=== PATIENT | female | born 1985 | race Native Hawaiian/Other Pacific Islander ===

== ENCOUNTER 2018-01-17 16:50 | Emergency (ER) | payer SELFPAY ==
[2018-01-17 17:17] VITALS: BP 123/76
--- NOTE | 2018-01-17 19:23 | Emergency Department Report ---
ED Anxiety HPI - General Chief Complaint: Anxiety Stated Complaint: RIGHT SIDE PAIN/HEAD PAIN Time Seen by Provider: 01/17/18 19:21 Source: patient Mode of arrival: Wheelchair - History of Present Illness Initial Comments: 32-year-old female reports that she had a panic attack at school after school officials informed her that the lost her child. Patient reported right flank pain. As well as a headache during her panic attack. Patient reports that she is currently on Cipro for urinary tract infection and has been on it for one week but still having symptoms. Patient does have a past medical history of anxiety, panic attacks, depression. Surgical history cholecystectomy. She is currently taking no medications has no known drug allergies. MD Complaint: anxiety, heart racing -: This afternoon Symptoms: dyspnea, palpitations Place: home Previous History of Same: Yes Severity: mild Quality: intermittant Improves With: nothing Worsens With: nothing Associated symptoms: shortness of breath, palpitations - Related Data Allergies/Adverse Reactions: Allergies Allergy/AdvReac Type Severity Reaction Status Date / Time No Known Allergies Allergy Unverified 01/17/18 17:16 ED Review of Systems ROS: Stated complaint: RIGHT SIDE PAIN/HEAD PAIN Other details as noted in HPI Comment: All other systems reviewed and negative Constitutional: no symptoms reported. denies: chills, fever Eyes: denies: eye pain, eye discharge, vision change ENT: denies: ear pain, throat pain Respiratory: no symptoms reported Cardiovascular: palpitations Endocrine: no symptoms reported Gastrointestinal: denies: abdominal pain, nausea, diarrhea Genitourinary: dysuria Musculoskeletal: denies: back pain, joint swelling, arthralgia Skin: denies: rash, lesions Neurological: headache Psychiatric: anxiety, depression. denies: auditory hallucinations, visual hallucinations, homicidal thoughts, suicidal thoughts ED Past Medical Hx - Past Medical History Previous Medical History?: Yes Hx Psychiatric Treatment: Yes (anxiety, panic attacks, depression) Additional medical history: liver mass - Surgical History Past Surgical History?: Yes Hx Cholecystectomy: Yes - Social History Smoking Status: Never Smoker ED Physical Exam - General Limitations: No Limitations General appearance: alert, anxious - Head Head exam: Present: atraumatic, normocephalic - Eye Eye exam: Present: normal appearance - ENT ENT exam: Present: mucous membranes moist - Respiratory Respiratory exam: Present: normal lung sounds bilaterally. Absent: respiratory distress - Cardiovascular Cardiovascular Exam: Present: regular rate, normal rhythm. Absent: systolic murmur, diastolic murmur, rubs, gallop - Neurological Exam Neurological exam: Present: alert, oriented X3 - Psychiatric Psychiatric exam: Present: normal affect, normal mood - Skin Skin exam: Present: warm, dry, intact, normal color. Absent: rash ED Course Vital Signs 01/17/18 17:12 Temperature 98.2 F Pulse Rate 77 Respiratory 16 Rate Blood Pressure 123/76 O2 Sat by Pulse 99 Oximetry ED Medical Decision Making - Medical Decision Making Patient has been evaluated by this provider fast track. Patient complains of urinary symptoms but has completed a course of Cipro urinalysis within normal limits. Anxiety given patient a Xanax 0.5 mg patient reports that this helped some. Patient reports a headache on the left side patient has been given ibuprofen for pain management. Critical care attestation.: If time is entered above; I have spent that time in minutes in the direct care of this critically ill patient, excluding procedure time. ED Disposition Clinical Impression: Anxiety attack Disposition: DC-01 TO HOME OR SELFCARE Is pt being admited?: No Does the pt Need Aspirin: No Condition: Stable Instructions: Anxiety (ED) Additional Instructions: Please follow up with your psychiatrist from [facility]. Continue taking her Lexapro as prescribed. Please increase her fluid intake with water. Referrals: [facility] [Primary Care Provider] - 3-[address] [facility] [Provider Group] - 3-5 Days Forms: Work/School Release Form(ED)
[2018-01-17] MEDS ORDERED: XANAX PO ONE (19:32)
[2018-01-17] MEDS ORDERED: MOTRIN PO ONE (19:32)
[2018-01-17 20:58] LABS: Bilirubin,Urine NEG (Negative); Blood,Urine NEG (Negative); Color,Urine Yellow (Yellow); Mucus,Urine 3+ /HPF
== END 2018-01-17 22:25 | disposition home or self-care (01) ==
LOC: ED 16:50
DX: F41.0 Panic disorder [episodic paroxysmal anxiety] (principal); F41.9 Anxiety disorder, unspecified; F32.9 Major depressive disorder, single episode, unspecified; Z90.49 Acquired absence of other specified parts of digestive tract
CPT/HCPCS: 81001; 99283